=== PATIENT | female | born 1990 | race Two or more races ===

== ENCOUNTER 2016-10-27 14:14 | Emergency (ER) | payer SELFPAY ==
[~2016-10-27] VITALS: Ht 167.6 cm; Wt 59.0 kg
[~2016-10-27 14:14] MED LIST: ACET-704 PO; IBUP-1060 PO
[2016-10-27 14:20] VITALS: BP 142/98
[2016-10-27] MEDS ORDERED: metroNIDAZOLE 500 MG TABLET PO ONE (14:45)
[2016-10-27] MEDS ORDERED: cefTRIAXone IM 250 MG VIAL IM ONE (14:45)
[2016-10-27] MEDS ORDERED: AZITHROMYCIN 250 MG TABLET. PO ONE (14:45)
[2016-10-27 14:57] LABS: BILIRUBIN,URINE NEGATIVE (NEG); GLUCOSE,URINE NEGATIVE (NEG); NITRITE,URINE NEGATIVE (NEG); PROTEIN,URINE NEGATIVE (NEG-TRACE); UROBILINOGEN,URINE 0.2 mg/dL (0.2 mg/dL)
[2016-10-27 15:16] LABS: BACTERIA,URINE FEW /HPF (0-FEW); RBC,URINE 0 /HPF (0-2); SQUAMOUS EPITHELIAL CELL,UR OCC /LPF
[2016-10-27] MEDS ORDERED: NITR100C62 PO (15:46)
[2016-10-27] MEDS ORDERED: DOXY100C2 PO (15:46)
--- NOTE | 2016-10-27 15:47 | PHYS DOC ---
Past Medical History Past Medical History: No Pertinent History Past Surgical History: No Surgical History Alcohol Use: None Drug Use: None Adult General Chief Complaint Chief Complaint: SEXUALLY TRANSMITTED DISEASE [facility] HPI Patient is a 26 year old female presents to the emergency department with a history of STD she states she had been treated for STD by the health department multiple times in the last 2 months. Patient states she is having symptoms of STD again. She states she is having white discharge with and odor, and lower abdominal pain and pain with urination. Patient states she has one sexual partner. She states her sexual partner had also been treated for STD. Patient denies fever, chills, nausea or vomiting. Review of Systems Review of Systems Constitutional: Denies fever or chills [] Eyes: Denies change in visual acuity, redness, or eye pain [] HENT: Denies nasal congestion or sore throat [] Respiratory: Denies cough or shortness of breath [] Cardiovascular: No additional information not addressed in HPI [] GI: lower abdominal pain, denies nausea, vomiting, bloody stools or diarrhea [] : Denies dysuria or hematuria C/o vaginal discharge Musculoskeletal: Denies back pain or joint pain [] Integument: Denies rash or skin lesions [] Neurologic: Denies headache, focal weakness or sensory changes [] Endocrine: Denies polyuria or polydipsia [] Current Medications Current Medications Current Medications Medications (Trade) Dose Ordered Sig/Kendy Start Time Stop Time Status Last Admin Dose Admin Azithromycin (Zithromax) 1,000 mg 1X ONCE 10/27/16 14:45 10/27/16 14:46 DC 10/27/16 15:16 1,000 MG Ceftriaxone Sodium (Rocephin Im) 250 mg 1X ONCE 10/27/16 14:45 10/27/16 14:46 DC 10/27/16 15:16 250 MG Metronidazole (Flagyl) 2,000 mg 1X ONCE 10/27/16 14:45 10/27/16 14:46 DC 10/27/16 15:16 2,000 MG Allergies Allergies Allergies Coded Allergies Type Severity Reaction Last Updated Verified No Known Drug Allergies 12/13/13 No Physical Exam Physical Exam Constitutional: Well developed, well nourished, no acute distress, non-toxic appearance. [] HENT: Normocephalic, atraumatic, bilateral external ears normal, oropharynx moist, no oral exudates, nose normal. [] Eyes: PERRLA, EOMI, conjunctiva normal, no discharge. [] Neck: Normal range of motion, no tenderness, supple, no stridor. [] Cardiovascular:Heart rate regular rhythm, no murmur [] Lungs & Thorax: Bilateral breath sounds clear to auscultation [] Abdomen: Bowel sounds hypoactive, soft, no tenderness, no masses, no pulsatile masses. [] Skin: Warm, dry, no erythema, no rash. [] Back: No tenderness, no CVA tenderness. [] Extremities: No tenderness, no cyanosis, no clubbing, ROM intact, no edema. [] Neurologic: Alert and oriented X 3, normal motor function, normal sensory function, no focal deficits noted. [] Psychologic: Affect normal, judgement normal, mood normal. [] Vaginal exam: speculum exam with white thick discharge noted, manual exam with right adnexal tenderness noted, CMT noted. Current Patient Data Vital Signs Vital Signs Date Time Temp Pulse Resp B/P (MAP) Pulse Ox O2 Delivery O2 Flow Rate FiO2 10/27/16 14:20 98.4 72 20 98 Room Air 98.4 Lab Values Laboratory Tests Test 10/27/16 13:36 10/27/16 14:44 POC Urine HCG, Qualitative Hcg negative (Negative) Urine Color Yellow Urine Clarity Cloudy Urine pH 7.0 Urine Specific [place] 1.015 Urine Protein Negative mg/dL (NEG-TRACE) Urine Glucose (UA) Negative mg/dL (NEG) Urine Ketones (Stick) Negative mg/dL (NEG) Urine Blood Negative (NEG) Urine Nitrite Negative (NEG) Urine Bilirubin Negative (NEG) Urine Urobilinogen Dipstick 0.2 mg/dL (0.2 mg/dL) Urine Leukocyte Esterase Small (NEG) Urine RBC 0 /HPF (0-2) Urine WBC 1-4 /HPF (0-4) Urine Squamous Epithelial Cells Occ /LPF Urine Bacteria Few /HPF (0-FEW) Urine Mucus Mod /LPF Microbiology 10/27/16 Wet Prep - Final, Complete EKG EKG [] Radiology/Procedures Radiology/Procedures [] Course & Med Decision Making Course & Med Decision Making Pertinent Labs and Imaging studies reviewed. (See chart for details) test was negative, wet prep was negative for bacterial vaginosis. Patient has requested be treated for sexually transmitted infection, she was provided Rocephin, Flagyl and Zithromax.. Urine was positive for urinary tract infection. Patient will be placed on Macrobid. She'll also be provided with doxycycline for the next 14 days for PID. Patient agrees with discharge instructions treatment regimens and follow-up recommendations. Signs and symptoms to return to the emergency department has been provided. [] Dragon Disclaimer Dragon Disclaimer This electronic medical record was generated, in whole or in part, using a voice recognition dictation system. Departure Departure Impression: Primary Impression: UTI (urinary tract infection) Additional Impressions: Concern about STD in female without diagnosis PID (acute pelvic inflammatory disease) Disposition: HOME, SELF-CARE Condition: STABLE Referrals: NO PCP (PCP) Patient Instructions: Pelvic Inflammatory Disease, [id number], Sexually Transmitted Disease, [id number], Urinary Tract Infection, [id number] Additional Instructions: You have been tested for STD these results will be back in 4-5 days. You will be notified by phone if the results are positive You have a urinary tract infection and are being treated for pelvic inflammatory disease. Drink plenty of water and cranberry juice. Avoid cranberry juice cocktail, carbonated beverages, citrus fruits, caffeine and alcohol. Avoid sexual intercourse for the next 2 weeks Followup with your primary care provider in 7-10 days Return to emergency department as needed for signs and symptoms that become worse. Scripts Doxycycline Hyclate (DOXYCYCLINE HYCLATE) 100 Mg Capsule 1 CAP PO BID, #28 CAP Prov: BENI HIGGINBOTHAM DIAL MARKER 10/27/16 Nitrofurantoin Monohyd/M-Cryst (MACROBID 100 MG CAPSULE) 100 Mg Capsule 1 CAP PO BID, #14 CAP Prov: BENI HIGGINBOTHAM DIAL MARKER 10/27/16 Problem Qualifiers BENI HIGGINBOTHAM DIAL MARKER October 27, 2016 15:47
== END 2016-10-27 15:50 | disposition home or self-care (01) ==
LOC: ER 14:14
DX: N39.0 Urinary tract infection, site not specified (principal); N73.9 Female pelvic inflammatory disease, unspecified; Z20.2 Contact with and (suspected) exposure to infections with a predominantly sexual mode of transmission
CPT/HCPCS: 81001; 84703; 87086; 87491; 87591; 96372; 99284; J0696; Q0111; Q0144; 81025